=== PATIENT | male | born 1940 | race Caucasian/White ===

== ENCOUNTER 2016-08-01 14:31 | Inpatient (IN) | payer MEDICARE ==
[2016-08-01] MEDS ORDERED: FUROSEMIDE 40 MG/4 ML VIAL IV ONE (15:06)
[2016-08-01 15:08] LABS: AUTOMATED BASOPHIL 1.3 % (0-2); AUTOMATED EOSINOPHIL 0.8 % (0-5); AUTOMATED LYMPH 5.7 % (17-44); AUTOMATED MONOCYTE 7.5 % (3-10); AUTOMATED NEUTROPHIL 84.7 % (45-76); MPV 10.1 fL (7.4-10.4)
[2016-08-01 15:08] LABS: ABG Draw Site Right Radial; ABG Draw Tech SI; ALLEN'S TEST PASS; BEb 1.5 (+/- 2); TCO2 30.2 MMOL/L (23-27)
--- NOTE | 2016-08-01 15:13 | EDPRACDOC ---
- General Information Chief Complaint: Dyspnea/Resp distress Stated Complaint: INFECTION IN LEG/ DIFFICULTY BREATHING Time Seen by Provider: 08/01/16 15:03 Information Source: Patient Mode Of Arrival: Car Home Medications: Home Medications MetFORMIN (Immediate Release) [GLUCOPHAGE Immed Release] 1,000 mg PO BID Aspirin (OrangeEnteric Coated) [Ecotrin] 325 mg PO DAILY 02/16/14 Potassium Chloride 20 meq PO DAILY 02/16/14 Omeprazole [Prilosec] 20 mg PO DAILY 11/29/14 Albuterol Sulfate [Proair Hfa] 2 puff INH QID PRN 03/07/15 Atorvastatin Calcium [Lipitor] 40 mg PO HS 03/07/15 Carvedilol [Coreg] 3.125 mg PO BID 03/07/15 Furosemide [Lasix] 40 mg PO DAILY 03/07/15 Isosorbide Mononitrate [Isosorbide Mononitrate ER] 60 mg PO DAILY 03/07/15 CloNIDine (Antihypertensive) [Catapres] 0.3 mg PO BID 07/11/15 HydrALAZINE (Cardiovascular) [Apresoline] 25 mg PO TID 07/11/15 Losartan Potassium [Cozaar] 100 mg PO DAILY 07/11/15 Albuterol Sulfate [Ventolin] 3 ml NEB Q2H PRN #100 nebu 01/02/16 Cephalexin Monohydrate [Keflex] 500 mg PO Q8H #30 cap 01/02/16 Nebulizer [Erapid Nebulizer] 1 each MC QID #1 each 01/02/16 Oxycodone HCl [Roxicodone] 5 mg PO Q4-6H #30 tablet 01/02/16 Probiotic Blend [Judy Q] 1 each PO BID #30 tab 01/02/16 Allergies/Adverse Reactions: Allergies Allergy/AdvReac Type Severity Reaction Status Date / Time No Known Allergies Allergy Verified 08/01/16 14:39 - History of Present Illness Onset: Several days HPI: Leg swelling, leg sweeping, progressively worsening shortness of breath over several days nonproductive cough. Shortness of Breath: Severe Relevant History: Reports: Heart Failure (CHF) Cough: Reports: Non-productive SOB Worsens with: Reports: Exertion, Lying Flat, PND, CARNES SOB Improves with: Reports: Sitting up Associated Signs and symptoms: Denies: Nausea, Vomiting, Diarrhea ED Past Medical History - History Reviewed Yes Nurses notes reviewed and agree except as marked Information Unobtainable: Yes Unable to obtain information due to patient condition (RESPIRATORY DISTRESS PRE VENTS INFO) - Patient Medical History Neurological History: Reports: Cerebrovascular Accident. Denies: Seizures Cardiac History: Reports: Hypertension, Congestive Heart Failure, Heart Attack, Cardiac Catheterization, Hypercholesterolemia Respiratory History: Reports: COPD, Pneumonia, Emphysema GI/ History: Reports: Kidney Stones, Gastroesophageal Reflux Musculoskeletal History: Denies: Arthritis, Rheumatoid Arthritis Psychological History: Reports: Depression. Denies: Substance Use Disorder Systemic History: Reports: Diabetes (Type 2). Denies: Cancer Surgical History: Reports: Cardiac Catheterization, Hernia Surgery (1969), Tonsillectomy/Adnoidectomy - Family Medical History Reports: Hypertension, Diabetes, Cancer, Stroke (Father), Cardiac Disorders ( Father: [place] possibly in his 50's, 59yo. Mother: heart disease.) - Social Medical History Smoking Status: Never smoker Social History: Denies: Substance Use Disorder EDM Review of Systems - Review of Systems ROS Negative Except as Marked: Yes All systems reviewed and were negative except as marked ROS Unobtainable: Yes Review of systems cannot be obtained due to the patient's medical condition - Physical Exam Constitutional: Alert, Confused (SOMEWHAT), Distress, Restless Oriented to: Time, Person, Place Last recorded Vital Signs: Last Vital Signs Temp 98.3 F 08/01/16 14:40 Pulse 115 08/01/16 14:40 Resp 24 08/01/16 14:40 BP 196/120 H 08/01/16 14:40 Pulse Ox 86 L 08/01/16 14:40 Oxygen Pulse Oxygen Saturation 86 O2 Device Oxygen Flow Rate Fraction of Inspired Oxygen ( FIO2) - HEENT Head: Normal Nose: No Symptoms Reported Neck: Edema (DIFFICULT TO EXAMINE). negative: Bony Tenderness, Limited ROM, Lymphadenopathy, Meningeal Signs - Respiratory/Cardiovascular Respiratory: Accessory Muscle Use, Rales (IN ALL LUNG HYDE), Tachypnea, Other (CAN SPEAK IN BRIEF RAISES, TRIPOD, SEVERE RESPIRATORY DISTRESS) Cardiovascular: Tachycardia - GI Auscultation: Normal Palpation: Normal Tenderness: Non tender - Bladder: Normal - Musculoskeletal Back: Normal Extremities: Pedal Edema (2+ PITTING EDEMA TO THE KNEES, WEEPING, SEVERAL OPEN WOUNDS.) - Integumentary Skin: Warm, Diaphoretic - Neurologic Memory Impaired: Short-term (IMPAIRED) Motor Function: Other (GROSSLY MOVING ALL 4 EXTREMITIES) Mood Description: Anxious Thought: Coherent ED SOB MDM - Results Result Diagrams: 08/01/16 14:46 08/01/16 14:46 Results: WBC 11.2 xk/uL (3.8-10.8) H 08/01/16 14:46 RBC 3.74 xM/uL (4.70-6.10) L 08/01/16 14:46 Hgb 11.3 g/dL (14.0-18.0) L 08/01/16 14:46 Hct 35.4 % (42-52) L 08/01/16 14:46 MCV 95 fL (80-94) H 08/01/16 14:46 MCH 30.2 pg (27-32) 08/01/16 14:46 MCHC 31.9 g/dl (33-36) L 08/01/16 14:46 RDW 14.3 % (11.5-14.5) 08/01/16 14:46 Plt Count 255 xk/uL (130-400) 08/01/16 14:46 MPV 10.1 fL (7.4-10.4) 08/01/16 14:46 Neut % (Auto) 84.7 % (45-76) H 08/01/16 14:46 Lymph % (Auto) 5.7 % (17-44) L 08/01/16 14:46 [place] % (Auto) 7.5 % (3-10) 08/01/16 14:46 Eos % (Auto) 0.8 % (0-5) 08/01/16 14:46 Baso % (Auto) 1.3 % (0-2) 08/01/16 14:46 Absolute Neuts (auto) 9.41 xk/uL (1.7-8.2) H 08/01/16 14:46 Absolute Lymphs (auto) 0.56 xk/uL (0.65-4.75) L 08/01/16 14:46 Puncture Site Right radial 08/01/16 15:02 pH 7.330 pH UNITS (7.35-7.45) L 08/01/16 15:02 pCO2 54.0 mmHg (35-45) H 08/01/16 15:02 pO2 44.0 mmHg (80-100) L* 08/01/16 15:02 HCO3 28.5 MMOL/L (22-26) H 08/01/16 15:02 Total CO2 30.2 MMOL/L (23-27) H 08/01/16 15:02 Base Excess 1.5 (+/- 2) 08/01/16 15:02 FiO2 % 21% 08/01/16 15:02 Specimen Drawn By Si 08/01/16 15:02 Lab Results 08/01/16 08/01/16 15:02 14:46 WBC 11.2 H RBC 3.74 L Hgb 11.3 L Hct 35.4 L MCV 95 H MCH 30.2 MCHC 31.9 L RDW 14.3 Plt Count 255 MPV 10.1 Neut % (Auto) 84.7 H Lymph % (Auto) 5.7 L [place] % (Auto) 7.5 Eos % (Auto) 0.8 Baso % (Auto) 1.3 Absolute Neuts (auto) 9.41 H Absolute Lymphs (auto) 0.56 L Puncture Site Right radial pH 7.330 L pCO2 54.0 H pO2 44.0 L* HCO3 28.5 H Total CO2 30.2 H Base Excess 1.5 FiO2 % 21% Specimen Drawn By Si - EKG EKG #1 EKG Time: 14:46 -: Yes EKG interpreted by me Rate: bpm: 108 [place]: Normal Rhythm: ST Hypertrophy: LVH ST: Nonsp Comparison: 12/30/15 (SIMILAR) - Diagnostic Imaging Chest Image interpreted by: Radiologist Diagnostic Imaging Comments: Patient Name: KENNETH CHRISTENSEN LOC: ED : 1940 AGE: 75 Order Date:08/01/16 Date of Service:03/10 Report # [id number] Ord Physician: Del Lopez DO Exam # [id number] Emergency Physician: Bindu Melgar MD Exam(s): [id number] RAD/DG CHEST PORTABLE CLINICAL DATA: Chest pain. EXAM: PORTABLE CHEST 1 VIEW COMPARISON: Chest x-ray dated 05/04/2016. FINDINGS: Study is hypoinspiratory with crowding of the perihilar and bibasilar bronchovascular markings. There is likely some degree of additional central pulmonary vascular congestion related to mild volume overload/CHF. Mild cardiomegaly is unchanged. IMPRESSION: Central pulmonary vascular congestion, appearance accentuated by the low lung volumes, suggesting at least some degree of volume overload/CHF. Electronically Signed By: Vick May M.D. On: 08/01/2016 15:08 Electronically Signed By: Vick May MD Electronically Signed Date/Time: 511 Dictate Date/Time: 08/01/16 1506 Technologist: Cuca Blunt Transcribed By: Daniele Transcribed Date/Time: 08/01/16 1508 ED Critical Care Note - Critical Care Note Total Time (mins): 35 Comments: Due to the presence of and / or the risk of deterioration, my attendance to this patient required critical care time, including assessment/reassessment, documentation, ordering and interpreting ancillary studies, discussion with ED staff and consultants,patient and family, and excludes time spent on separately billable procedures. - Departure Disposition: Admit IP To This Hospital Condition: Unstable Final Diagnosis: Hypertensive emergency, ACUTELY DECOMPENSATED CONGESTIVE, Acute respiratory failure with hypoxia Instructions: Chronic Hypertension (ED) Education/Counseling Given To: Patient, Family Member Education/Counseling Given Regarding: Diagnosis, Treatment Referrals: Ivan Parson MD [Primary Care Provider] - As Needed Decision to Admit Time: 15:42 Decision to admit date: 08/01/16 Decision to admit: from ED - Physician Consulted Hospitalist Time Called: 15:39 Provider Called: Venkatesh Bray Time Seamer [employer] Returned Call: 15:42
[2016-08-01 15:19] LABS: BLOOD UREA NITROGEN 38 MG/DL (9-20); CALC CORRECTED 8.1 MG/DL (8.4-10.2); CALCIUM 7.6 MG/DL (8.4-10.2); CALCULATED OSMOLALITY 292 MOs/Kg (270-290); CHLORIDE 104 mEq/L (98-107); GLUCOSE 179 MG/DL (70-99); SODIUM LEVEL 145 mEq/L (137-146); TOTAL PROTEIN 6.7 G/DL (6.3-8.2)
[2016-08-01 15:25] LABS: PARTIAL THROMB. TIME 30.1 SEC (22-35); PT-INR 1.1
[2016-08-01] MEDS ORDERED: NITROGLYCERINE 0.4 MG TAB SL PRN (15:57)
[2016-08-01] MEDS ORDERED: Enoxaparin Treatment Dose per Pharmacy SQ SCH (16:00)
[2016-08-01] MEDS ORDERED: Pharmacy Order Set Alert SCH (16:00)
[2016-08-01] MEDS ORDERED: GLUCOSE (ORAL GEL) 15 GM TUBE PO PRN (16:23)
[2016-08-01] MEDS ORDERED: DEXTROSE 25 GM/50 ML PFS IV PRN (16:23)
[2016-08-01] MEDS ORDERED: GLUCAGON 1 MG VIAL SQ PRN (16:23)
--- NOTE | 2016-08-01 16:27 | HISTPHYS ---
- Chief Complaint Shortness of breath, hypertension, leg infection - History of Present Illness This is a 75-year-old male with a history of hypertension, CHF who is being admitted to the hospital with hypertensive encephalopathy, acute CHF exacerbation and concern for lower extremity cellulitis. Patient tells me that he has chronic shortness of breath, seems to be slightly confused tells me that his shortness of breath is all the time, but it seems to come and go. Says that he has had some chest tightness in the last few days, but the thing that really brought him to the hospital is severe pain in his left leg. His daughters at the bedside, with whom he has been staying for the last few days, she is able to provide some more history. She says that he is becoming progressively more short of breath over the last week or so, has been coughing but it is nonproductive. The reason she really brought to the hospital today is that he is having severe left leg pain that keeps to come in spasms. They have been trying to elevate the left lower extremity, but whenever they go to let him on his back, he started to coughing fits and has severe shortness of breath. They deny any fevers or chills, the patient says that most of his pain is in the left leg, but at times he has had some chest tightness and pain. No nausea or vomiting, no blood in the stools or any vomitus. No therapies tried prior to arrival. They are concerned about infection in the lower extremities, as he has been weeping some clear fluid, with the patient's daughter also tells me that he has been draining some thick appearing green material from his leg, the left lateral side. - Medical History Cardiac History: Reports: Hypertension, Congestive Heart Failure, Heart Attack, Cardiac Catheterization, Hypercholesterolemia Respiratory History: Reports: COPD, Pneumonia, Emphysema GI/ History: Reports: Kidney Stones, Gastroesophageal Reflux Musculoskeletal History: Denies: Arthritis, Rheumatoid Arthritis Systemic History: Reports: Diabetes (Type 2). Denies: Cancer Neurological History: Reports: Cerebrovascular Accident. Denies: Seizures Psychological History: Reports: Depression. Denies: Substance Use Disorder - Surgical History Reports: Cardiac Catheterization, Hernia Surgery (1969), Tonsillectomy/ Adnoidectomy - Medictions/Allergies Allergies No Known Allergies Allergy (Verified 08/01/16 14:39) Home Medications MetFORMIN (Immediate Release) [GLUCOPHAGE Immed Release] 1,000 mg PO BID Aspirin (OrangeEnteric Coated) [Ecotrin] 325 mg PO DAILY 02/16/14 Potassium Chloride 20 meq PO DAILY 02/16/14 Omeprazole [Prilosec] 20 mg PO DAILY 11/29/14 Albuterol Sulfate [Proair Hfa] 2 puff INH QID PRN 03/07/15 Atorvastatin Calcium [Lipitor] 40 mg PO HS 03/07/15 Carvedilol [Coreg] 3.125 mg PO BID 03/07/15 Furosemide [Lasix] 40 mg PO DAILY 03/07/15 Isosorbide Mononitrate [Isosorbide Mononitrate ER] 60 mg PO DAILY 03/07/15 CloNIDine (Antihypertensive) [Catapres] 0.3 mg PO BID 07/11/15 HydrALAZINE (Cardiovascular) [Apresoline] 25 mg PO TID 07/11/15 Losartan Potassium [Cozaar] 100 mg PO DAILY 07/11/15 Albuterol Sulfate [Ventolin] 3 ml NEB Q2H PRN #100 nebu 01/02/16 Cephalexin Monohydrate [Keflex] 500 mg PO Q8H #30 cap 01/02/16 Nebulizer [Erapid Nebulizer] 1 each MC QID #1 each 01/02/16 Oxycodone HCl [Roxicodone] 5 mg PO Q4-6H #30 tablet 01/02/16 Probiotic Blend [Judy Q] 1 each PO BID #30 tab 01/02/16 - Family History Reports: Hypertension, Diabetes, Cancer, Stroke (Father), Cardiac Disorders ( Father: [place] possibly in his 50's, 59yo. Mother: heart disease.) - Social History Smoking Status: Never smoker Social History: Denies: Substance Use Disorder - Review of Systems Constitutional: No Symptoms Reported (No fever, chills, wt loss/gain, fatigue) Eyes: No Symptoms Reported (No blurry vision, visual changes) Respiratory: No Symptoms Reported (No cough,wheezing or shortness of breath) Cardiovascular: No Symptoms Reported (No Chest pain, palpitations) Gastrointestinal: No Symptoms Reported (No abdominal pain, nausea, vomiting, diarrhea or constipation) Genitourinary: No Symptoms Reported (No dysuria) Musculoskeletal:: No Symptoms Reported (No headache, dizzness, seizures or focal weakness) Integumentary: No Symptoms Reported (No rashes or lesions) Hematologic: No Symptoms Reported (No bleeding or easy bruising) Endocrine: No Symptoms Reported (No polyuria) - Physical Exam Vital Signs: Initial Vitals Temperature 98.3 F 08/01/16 14:40 Pulse Rate 115 08/01/16 14:40 Respiratory Rate 24 08/01/16 14:40 Blood Pressure 196/120 H 08/01/16 14:40 Pulse Oxygen Saturation 86 L 08/01/16 14:40 Constitutional: Distress. negative: Cachectic, Confused Oriented to: Time, Person, Place Exam: male appearing his stated age breathing comfortably on BiPAP. Respiratory: Diminished, Rhonchi, Tachypnea, Wheezes Cardiovascular: Normal (RRR, no murmurs, rubs or gallops) - GI Palpation: Normal (soft, non distended and nontender) - Musculoskeletal Extremities: Normal (normal tone, no cyanosis or edema) Bilateral lower extremities with significant edema, he has multiple wounds that are scabbed over in different stages of healing. There is clear fluid weeping from the bilateral lower extremities, left greater than right. - Focused CV Perfusion Exam Vital Signs: Last Vital Signs Temp 98.3 F 08/01/16 14:40 Pulse 97 08/01/16 15:24 Resp 32 H 08/01/16 15:24 BP 182/93 H 08/01/16 15:24 Pulse Ox 94 08/01/16 15:24 - Lab Results Laboratory Tests 08/01/16 08/01/16 08/01/16 14:46 14:46 14:46 WBC 11.2 H Hgb 11.3 L Hct 35.4 L Plt Count 255 INR 1.1 pH pCO2 pO2 Potassium 4.6 BUN 38 H Creatinine 2.30 H AST 25 ALT 24 Troponin I 1.27 H* [id number]-Lgsybzjblch Pept 8780 H 08/01/16 15:02 WBC Hgb Hct Plt Count INR pH 7.330 L pCO2 54.0 H pO2 44.0 L* Potassium BUN Creatinine AST ALT Troponin I Rvj-F-Jdmzhtfbval Pept - Diagnostic Findings Chest x-ray: Central pulmonary vascular congestion, appearance accentuated by the low lung volumes, suggesting at least some degree of volume overload/CHF. - Assessment (1) Acute exacerbation of CHF (congestive heart failure) I50.9 - HEART FAILURE, UNSPECIFIED Acute With significant hypoxia, systolic and diastolic hypertension. Will resume the patient's usual cardiac medications , will admit to the hospital using evidence based care acute CHF order set. Diabetic and low-sodium diet when eating. Will initiate aggressive IV diuresis with Lasix every 8 hours. Will increase potassium supplementation to match. Follow electrolytes daily, follow strict ins and outs. Will place De catheter for this. (2) Hypertensive emergency I16.1 - HYPERTENSIVE EMERGENCY Acute With severe hypertension with systolic above 210, as well as intermittent confusion. Will resume the patient's home medications including clonidine, will hold losartan due to his acute kidney injury. Will also start nitrate drip. (3) Acute respiratory failure with hypoxia J96.01 - ACUTE RESPIRATORY FAILURE WITH HYPOXIA Acute Likely due to combination of fluid overload and severe hypertension. Treating as above. (4) Cellulitis L03.90 - CELLULITIS, UNSPECIFIED Acute Qualifiers: Site of cellulitis: extremity Site of cellulitis of extremity: lower extremity Laterality: right Qualified Code(s): L03.115 - Cellulitis of right lower limb Patient is a history of lower extremity ulceration with infection. Currently there is no luis carlos evidence of infection, though there is some warmth and erythema surrounding his chronic ulcerations and leg wounds. As such, will start IV linezolid, to cover for MRSA in this diabetic patient with prior history of cellulitis also has acute kidney injury currently. (5) Chronic ulcer of right calf L97.219 - NON-PRESSURE CHRONIC ULCER OF RIGHT CALF WITH UNSP SEVERITY Acute Status post surgical debridement and antibiotic therapy about 6 months ago. (6) Acute kidney injury N17.9 - ACUTE KIDNEY FAILURE, UNSPECIFIED Chronic Patient's baseline creatinine is around 1.7, today his creatinine is elevated well above 2. This is likely related to his hypertension and poor kidney perfusion due to fluid overload. Follow up closely with IV diuretic as stated above. (7) Type 2 diabetes mellitus with diabetic polyneuropathy E11.42 - TYPE 2 DIABETES MELLITUS WITH DIABETIC POLYNEUROPATHY Chronic Qualifiers: Diabetes mellitus ferry terminal agent insulin use: without senior care use Qualified Code(s): E11.42 - Type 2 diabetes mellitus with diabetic polyneuropathy Patient is on metformin at home, though blood sugars are highly elevated here. Will discontinue metformin due to his acute kidney injury, give sliding scale q.a.c. and HS insulin as needed. Also will check hemoglobin A1c and urine microalbumin. (8) Non-STEMI (non-ST elevated myocardial infarction) I21.4 - NON-ST ELEVATION (NSTEMI) MYOCARDIAL INFARCTION Acute Patient with elevated troponin, but hemodynamically stable without any chest pain. Will treat medically with aspirin, beta-melba, statin. Will also fully anticoagulated with IV Lovenox. Discussed with on-call Cardiology, who agrees with current management. Formal consult to follow in the morning. Note that he has acute kidney injury which may be exacerbating his troponin rise. - Plan In summary this patient is acutely and critically ill. The patient requires treatment of vital organ failure and measures to prevent further life- threatening deterioration of the above conditions. I personally reviewed and ordered lab testing, as well as imaging. I reviewed old medical records from previous hospitalizations as available, and spent the time mentioned below in critical care of this patient including counseling and coordination of care. Case Care Discussed with: Patient, Family, Nursing Staff Total Time: 85 Critical Care: Yes Couseling Time (>50% in counseling/coordination): Yes Code: 291
[2016-08-01] MEDS: REGULAR INSULIN 100 UNITS/ML - 3 ML VIAL SQ SCH ×2 (17:44→21:35)
[2016-08-01] MEDS: FUROSEMIDE 20 MG/2 ML VIAL IV SCH (17:46)
[2016-08-01] MEDS: ENOXAPARIN 80 MG/0.8 ML PFS SQ SCH (17:46)
[2016-08-01] MEDS: Linezolid 600 mg/300 ml Premix 600 MG/300 ML RTU IV SCH (17:52)
[2016-08-01] MEDS: MORPHINE 2 MG/ML INJECTION IV PRN (18:07)
[2016-08-01] MEDS ORDERED: LABETALOL 20 MG/4 ML SYRINGE IV ONE (18:15)
[2016-08-01] MEDS: Nitroglycerin D5W 50,000 MCG/250 ML IVBOT IV SCH (18:35)
[2016-08-01] MEDS: hydrALAZINE 25 MG TAB PO SCH (20:05)
[2016-08-01] MEDS: CARVEDILOL 3.125 MG TAB PO SCH (20:05)
[2016-08-01] MEDS: ATORVASTATIN 40 MG TAB PO SCH (20:06)
[2016-08-01] MEDS: OXYCODONE HCL 5 MG TABLET PO PRN (20:09)
[2016-08-01] MEDS: ACETAMINOPHEN 325 MG/TAB TABLET PO PRN (20:09)
[2016-08-01] MEDS: LORAZEPAM 2 MG/ML VIAL IV PRN (22:14)
[2016-08-02] MEDS: FUROSEMIDE 20 MG/2 ML VIAL IV SCH ×2 (01:03→08:47)
[2016-08-02 04:45] LABS: MPV 10.2 fL (7.4-10.4)
[2016-08-02 04:55] LABS: BLOOD UREA NITROGEN 40 MG/DL (9-20); CALCIUM 7.6 MG/DL (8.4-10.2); CALCULATED OSMOLALITY 287 MOs/Kg (270-290); CHLORIDE 100 mEq/L (98-107); GLUCOSE 90 MG/DL (70-99); SODIUM LEVEL 144 mEq/L (137-146)
[2016-08-02] MEDS: REGULAR INSULIN 100 UNITS/ML - 3 ML VIAL SQ SCH ×4 (05:42→20:29)
[2016-08-02] MEDS: hydrALAZINE 25 MG TAB PO SCH ×3 (05:55→20:28)
[2016-08-02] MEDS: PANTOPRAZOLE 40 MG TAB PO SCH (05:55)
[2016-08-02] MEDS: Linezolid 600 mg/300 ml Premix 600 MG/300 ML RTU IV SCH ×2 (05:55→17:06)
[2016-08-02] MEDS: ENOXAPARIN 80 MG/0.8 ML PFS SQ SCH (05:56)
[2016-08-02] MEDS: MORPHINE 2 MG/ML INJECTION IV PRN ×2 (06:01→11:46)
[2016-08-02] MEDS: POTASSIUM CHLORIDE 20 MEQ TAB PO SCH (08:46)
[2016-08-02] MEDS: ISOSORBIDE MONONITRATE 60 MG TAB PO SCH (08:47)
[2016-08-02] MEDS: CARVEDILOL 3.125 MG TAB PO SCH ×2 (08:47→20:29)
[2016-08-02] MEDS: Aspirin (Orange Enteric Coated) 325 mg tab PO SCH (08:47)
[2016-08-02] MEDS ORDERED: OMEPRAZOLE 20 MG PO SCH (09:00)
[2016-08-02] MEDS ORDERED: Non-Formulary Medication ITEM (Potassium Chloride [Potassium Chloride] 40 MEQ) PO SCH (09:00)
--- NOTE | 2016-08-02 09:07 | GENMEDPROG ---
Chief Complaint: Fluid overload, bilateral leg weeping Subjective Note: Doing well, feels that he is breathing much better. Was just taken off of BiPAP this morning and tolerating nasal cannula oxygen. Still having pain in his legs, primarily on the left. Notes Reviewed: Yes Events from last night noted and discussed with Clinical Staff Current Medication List: Reviewed Currently: Reports: CARNES. Denies: Cough, Wheezing DVT Prophylaxis: Yes - Physical Examination Vital Signs and I&O: Last Vital Signs Temp 98.0 F 08/02/16 06:50 Pulse 97 08/02/16 06:50 Resp 22 08/02/16 04:00 BP 153/81 08/02/16 06:50 Pulse Ox 100 08/02/16 04:00 Oxygen Pulse Oxygen Saturation 100 O2 Device BiPAP Oxygen Flow Rate 3 Fraction of Inspired Oxygen ( 40 FIO2) Intake & Output 07/31/16 08/01/16 08/02/16 08/03/16 06:59 06:59 06:59 06:59 Intake Total 240 Output Total 1700 Balance -1460 Patient's weight 89.403 kg Respiratory: Diminished (Slightly improved air movement this morning.), Rhonchi , Tachypnea, Wheezes GI: Normal bowel sounds, Soft, Non tender (non distended) Extremities/Musculoskeletal: Other (Edema is slightly improved. Still has chronic appearing wound on his bilateral lower extremities.) Lab/DI/Studies Reviewed: Laboratory Tests 08/01/16 08/01/16 08/01/16 14:46 17:40 20:15 WBC Hgb Potassium BUN Creatinine 2.30 H Troponin I 1.61 H* 1.66 H* 08/02/16 08/02/16 04:25 04:25 WBC 11.7 H Hgb 9.8 L D Potassium 4.6 BUN 40 H Creatinine 2.30 H Troponin I - Assessment (1) Acute exacerbation of CHF (congestive heart failure) Acute I50.9 - HEART FAILURE, UNSPECIFIED Comment/Plan: With significant hypoxia, systolic and diastolic hypertension. Will resume the patient's usual cardiac medications, he was admitted to the hospital using evidence based care acute CHF order set. Diabetic and low-sodium diet when eating. Patient is responding well to aggressive IV diuresis, his renal function is holding well and he has diuresed a total of about 1500 cc of fluid. Continue potassium supplementation, increase Lasix diuresis to 40 mg IV q.8 hours. Follow electrolytes daily, as well as strict I&Os. (2) Hypertensive emergency Acute I16.1 - HYPERTENSIVE EMERGENCY Comment/Plan: With severe hypertension with systolic above 210 at the time of admission, as well as intermittent confusion. His home medications has been her resumed, is also on night trait drip which will be weaned down today as able. Note that his home losartan has been held due to his acute kidney injury. (3) Acute respiratory failure with hypoxia Acute J96.01 - ACUTE RESPIRATORY FAILURE WITH HYPOXIA Comment/Plan: Likely due to combination of fluid overload and severe hypertension. Treating as above. (4) Cellulitis Acute L03.90 - CELLULITIS, UNSPECIFIED Qualifiers: Site of cellulitis: extremity Site of cellulitis of extremity: lower extremity Laterality: right Qualified Code(s): L03.115 - Cellulitis of right lower limb Comment/Plan: Patient is a history of lower extremity ulceration with infection. Currently there is no luis carlos evidence of infection, though there is some warmth and erythema surrounding his chronic ulcerations and leg wounds. As such, will start IV linezolid, to cover for MRSA in this diabetic patient with prior history of cellulitis also has acute kidney injury currently. Wound Care has been consulted. (5) Chronic ulcer of right calf Acute L97.219 - NON-PRESSURE CHRONIC ULCER OF RIGHT CALF WITH UNSP SEVERITY Comment/Plan: Status post surgical debridement and antibiotic therapy about 6 months ago. (6) Acute kidney injury Chronic N17.9 - ACUTE KIDNEY FAILURE, UNSPECIFIED Comment/Plan: Patient's baseline creatinine is around 1.7, today his creatinine is elevated well above 2. This is likely related to his hypertension and poor kidney perfusion due to fluid overload. Follow up closely with IV diuretic as stated above. (7) Type 2 diabetes mellitus with diabetic polyneuropathy Chronic E11.42 - TYPE 2 DIABETES MELLITUS WITH DIABETIC POLYNEUROPATHY Qualifiers: Diabetes mellitus retirement insulin use: without termite renewal inspector use Qualified Code(s): E11.42 - Type 2 diabetes mellitus with diabetic polyneuropathy Comment/Plan: Patient is on metformin at home, though blood sugars are highly elevated here. Will discontinue metformin due to his acute kidney injury, give sliding scale q.a.c. and HS insulin as needed. Also will check hemoglobin A1c and urine microalbumin. (8) Non-STEMI (non-ST elevated myocardial infarction) Acute I21.4 - NON-ST ELEVATION (NSTEMI) MYOCARDIAL INFARCTION Comment/Plan: Patient with elevated troponin, but hemodynamically stable without any chest pain. Will treat medically with aspirin, beta-melba, statin. Will also fully anticoagulated with IV Lovenox. Discussed with on-call Cardiology, who agrees with current management. Formal consult to follow in the morning. Note that he has acute kidney injury which may be exacerbating his troponin rise.
--- NOTE | 2016-08-02 10:48 | PCM.CARDCO ---
Consultation Date: 08/02/16 Requesting Physician: Venkatesh Bray Field Care Advocate: Amrit Dukes Consult Reason: NSTEMI - History of Present Illness Chief Complaint: Shortness of breath, hypertension, leg infection - Past Medical and Surgical History Cardiac History: Reports: Hypertension, Congestive Heart Failure, Heart Attack, Cardiac Catheterization Respiratory History: Reports: COPD, Pneumonia, Emphysema GI/ History: Reports: Kidney Stones Musculoskeletal History: Denies: Arthritis Psychological History: Reports: Depression Neurological History: Reports: Cerebrovascular Accident. Denies: Seizures Past Surgical History: Reports: Cardiac Catheterization, Hernia Surgery (1969), Tonsillectomy/Adnoidectomy Allergies No Known Allergies Allergy (Verified 08/01/16 14:39) Home Medications MetFORMIN (Immediate Release) [GLUCOPHAGE Immed Release] 1,000 mg PO BID Aspirin (OrangeEnteric Coated) [Ecotrin] 325 mg PO DAILY 02/16/14 Potassium Chloride 20 meq PO DAILY 02/16/14 Omeprazole [Prilosec] 20 mg PO DAILY 11/29/14 Albuterol Sulfate [Proair Hfa] 2 puff INH QID PRN 03/07/15 Atorvastatin Calcium [Lipitor] 40 mg PO HS 03/07/15 Carvedilol [Coreg] 3.125 mg PO BID 03/07/15 Furosemide [Lasix] 40 mg PO DAILY 03/07/15 Isosorbide Mononitrate [Isosorbide Mononitrate ER] 60 mg PO DAILY 03/07/15 CloNIDine (Antihypertensive) [Catapres] 0.3 mg PO BID 07/11/15 HydrALAZINE (Cardiovascular) [Apresoline] 25 mg PO TID 07/11/15 Losartan Potassium [Cozaar] 100 mg PO DAILY 07/11/15 Albuterol Sulfate [Ventolin] 3 ml NEB Q2H PRN #100 nebu 01/02/16 Cephalexin Monohydrate [Keflex] 500 mg PO Q8H #30 cap 01/02/16 Nebulizer [Erapid Nebulizer] 1 each MC QID #1 each 01/02/16 Oxycodone HCl [Roxicodone] 5 mg PO Q4-6H #30 tablet 01/02/16 Probiotic Blend [Judy Q] 1 each PO BID #30 tab 01/02/16 - Social History Travel Outside of [place] in the Last 3 Months?: No Smoking Status: Former smoker - Family History Reports: Hypertension, Diabetes, Cancer, Stroke (Father), Cardiac Disorders ( Father: [place] possibly in his 50's, 59yo. Mother: heart disease.) - Review of Systems Constitutional: No Symptoms Reported (No fever, chills, wt loss/gain, fatigue) - Physical Exam Constitutional: Distress. negative: Cachectic, Confused Oriented to: Time, Person, Place Exam: Last Vital Signs Temp 98.0 F 08/02/16 06:50 Pulse 106 08/02/16 09:58 Resp 22 08/02/16 04:00 BP 128/56 L 08/02/16 09:58 Pulse Ox 100 08/02/16 04:00 Intake & Output 08/01/16 08/02/16 08/02/16 23:59 07:59 15:59 Intake Total 240 480 Output Total 900 800 Balance -660 -800 480 Patient's weight 89.403 kg - HEENT Head: Normal Nose: No Symptoms Reported - Respiratory/Cardiovascular Respiratory: Diminished (Slightly improved air movement this morning.), Rhonchi , Tachypnea, Wheezes Cardiovascular: Other (S1-S2 regular 2/6 systolic murmur at the apex lungs bilateral air entry with diminished sounds) - GI Palpation: Normal (soft, non distended and nontender) - Musculoskeletal Extremities: Normal (normal tone, no cyanosis or edema) - Integumentary Skin: Warm, Diaphoretic - Neurologic Memory Impaired: Short-term (IMPAIRED) Mood Description: Anxious Thought: Coherent - Other Exam Other Exam Findings: Abdomen is nontender. Lower extremities have evidence of chronic cellulitis and significant ulceration. He does not completely evaluated because of the fact that there is alert of dressing on these wounds. - Assessment/Plan (1) Non-STEMI (non-ST elevated myocardial infarction) I21.4 - NON-ST ELEVATION (NSTEMI) MYOCARDIAL INFARCTION Acute Comment: I agree with my partner. He discussed the case at length with the hospitalist and recommended medical therapy. Patient has not taken good care of himself is noncompliant and it is general condition overall is poor. Continue medical therapy. Patient is on appropriate medications including statins. Blood pressure is stable at this time and we will monitor it closely. Further recommendations will depend on the course of the hospital stay. Echocardiogram is pending. (2) Cellulitis L03.90 - CELLULITIS, UNSPECIFIED Acute extremity lower extremity right L03.115 - Cellulitis of right lower limb Comment: Significant and is managed by hospitalist at this time. (3) Acute kidney injury N17.9 - ACUTE KIDNEY FAILURE, UNSPECIFIED Chronic Comment: Renal insufficiency is concerning in view of the patient's diabetes. This is managed by the hospitalist. (4) Type 2 diabetes mellitus with diabetic polyneuropathy E11.42 - TYPE 2 DIABETES MELLITUS WITH DIABETIC POLYNEUROPATHY Chronic without adjunct faculty for medical terminology use E11.42 - Type 2 diabetes mellitus with diabetic polyneuropathy Comment: Diet was discussed. Compliance with medical therapy was urged and the patient vocalized understanding.
--- NOTE | 2016-08-02 12:34 | CAPUECHO ---
INDICATION: HEART FAILURE HEIGHT: 147.3 cm (4 ft 10.0 in) WEIGHT: 81.7 kg (180.0 lbs) BP: 160/92 BSA: 1.729067 m MEASUREMENTS 2D RVIDd: 3.7 cm LVIDs: 4.3 cm EF(Teich): 37.71 % IVSd: 1.2 cm LVIDd: 5.3 cm LVPWd: 1.2 cm LA Diam: 4.7 cm LAESV MOD A4C: 55.8 ml LAESV MOD A2C: 82.4 ml LAESV Index (A-L): 44.27 ml/m DOPPLER MV E Moody: 0.78 m/s MV A Moody: 1.28 m/s LVOT Vmax: 1.06 m/s AV Vmax: 1.23 m/s FINDINGS ------- Procedure:2D images, m-mode, color and spectral Doppler were obtained and reviewed. ECG rhythm:Sinus rhythm. Study quality:This was a technically adequate study. This was a technically difficult study with s uboptimal views. Left Ventricle:There is mild concentric left ventricular hypertrophy. Overall left ventricular sys tolic function is low-normal with, an EF between 50 - 55 %. The diastolic filling pattern indicate s impaired relaxation. Right Ventricle:The right ventricle is normal in size and function. The RV was not well visualized . Left Atrium:The left atrium is mildly dilated. Right Atrium:The right atrium is normal in size and function. Aortic Valve:The aortic valve is trileaflet, and appears structurally normal. No aortic stenosis or regurgitation. There is mild aortic valve sclerosis. Mitral Valve:Normal appearing mitral valve. Mild mitral regurgitation is present. Tricuspid Valve:The tricuspid valve appears structurally normal. Trace tricuspid regurgitation pre sent. Pulmonic Valve:The pulmonic valve is normal. There is no pulmonic regurgitation present. Aorta:The aortic root, ascending aorta and aortic arch appear normal. IVC:Normal inferior vena cava with normal inspiratory collapse. Pericardium:There is no pericardial effusion. CONCLUSIONS 1. This was a technically difficult study with suboptimal views. 2. There is mild concentric left ventricular hypertrophy. 3. Overall left ventricular systolic function is low-normal with, an EF between 50 - 55 %. 4. The diastolic filling pattern indicates impaired relaxation. 5. Mild mitral regurgitation is present. 6. Trace tricuspid regurgitation present. Electronically Signed By: Amrit Dukes MD -- Electronically Signed On: 12:33:08
[2016-08-02] MEDS: OXYCODONE HCL 5 MG TABLET PO PRN ×2 (12:59→20:28)
[2016-08-02] MEDS ORDERED: Vaccine Screening Complete SCH (13:00)
[2016-08-02] MEDS: Nitroglycerin D5W 50,000 MCG/250 ML IVBOT IV SCH (14:19)
[2016-08-02] MEDS: ENOXAPARIN 100 MG PFS SQ SCH (17:07)
[2016-08-02] MEDS: FUROSEMIDE 40 MG/4 ML VIAL IV SCH (17:07)
[2016-08-02] MEDS: Magnesium Sulfate 2 gm/D5W 2 GM/50 ML RTU IV ONE ×2 (18:26→18:53)
[2016-08-02] MEDS: ATORVASTATIN 40 MG TAB PO SCH (20:29)
[2016-08-03] MEDS: LORAZEPAM 2 MG/ML VIAL IV PRN (00:25)
[2016-08-03] MEDS: FUROSEMIDE 40 MG/4 ML VIAL IV SCH ×4 (00:25→23:36)
[2016-08-03 05:01] LABS: MPV 10.1 fL (7.4-10.4)
[2016-08-03 05:12] LABS: BLOOD UREA NITROGEN 39 MG/DL (9-20); CALCIUM 7.9 MG/DL (8.4-10.2); CALCULATED OSMOLALITY 279 MOs/Kg (270-290); CHLORIDE 96 mEq/L (98-107); GLUCOSE 112 MG/DL (70-99); SODIUM LEVEL 140 mEq/L (137-146)
[2016-08-03] MEDS: hydrALAZINE 25 MG TAB PO SCH ×3 (05:53→22:37)
[2016-08-03] MEDS: Linezolid 600 mg/300 ml Premix 600 MG/300 ML RTU IV SCH ×2 (05:53→17:01)
[2016-08-03] MEDS: ENOXAPARIN 100 MG PFS SQ SCH ×2 (05:53→17:01)
[2016-08-03] MEDS: PANTOPRAZOLE 40 MG TAB PO SCH (05:53)
[2016-08-03] MEDS: REGULAR INSULIN 100 UNITS/ML - 3 ML VIAL SQ SCH ×4 (05:58→22:32)
--- NOTE | 2016-08-03 08:40 | GENMEDPROG ---
Chief Complaint: Acute heart failure, leg infection, non ST elevation ID Subjective Note: Resting comfortably in bed this morning. Feels like his breathing is better, this legs are less swollen as well. Notes Reviewed: Yes Events from last night noted and discussed with Clinical Staff Current Medication List: Reviewed Currently: Reports: CARNES. Denies: Cough, Wheezing DVT Prophylaxis: Yes - Physical Examination Vital Signs and I&O: Last Vital Signs Temp 98.4 F 08/03/16 07:41 Pulse 89 08/03/16 07:41 Resp 20 08/03/16 07:41 BP 131/71 08/03/16 07:41 Pulse Ox 92 08/03/16 07:41 Oxygen Pulse Oxygen Saturation 92 O2 Device Nasal Cannula Oxygen Flow Rate 3 Fraction of Inspired Oxygen ( 40 FIO2) Intake & Output 08/01/16 08/02/16 08/03/16 08/04/16 06:59 06:59 06:59 06:59 Intake Total 240 2258 Output Total 1700 3600 Balance -1460 -1342 Patient's weight 89.403 kg 89.312 kg Respiratory: Diminished (Slightly improved air movement this morning.), Rhonchi , Tachypnea, Wheezes Cardiovascular: Regular rate, No Gallops,Rubs/Murmurs GI: Normal bowel sounds, Soft, Non tender (non distended) Extremities/Musculoskeletal: Edema (3+ pitting bilateral edema which is improving.), Other (Normal Tone). negative: Cyanosis Neurological: Cranial Nerves (II-XII intact) Lab/DI/Studies Reviewed: Laboratory Tests 08/02/16 08/03/16 08/03/16 04:25 04:25 04:25 Hgb 10.0 L BUN 39 H Creatinine 2.30 H 2.20 H - Assessment (1) Acute exacerbation of CHF (congestive heart failure) Acute I50.9 - HEART FAILURE, UNSPECIFIED Comment/Plan: With significant hypoxia, systolic and diastolic hypertension. Will resume the patient's usual cardiac medications, he was admitted to the hospital using evidence based care acute CHF order set. Diabetic and low-sodium diet when eating. Patient is responding well to aggressive IV diuresis, his renal function is holding well and he has diuresed a total of about 1500 cc of fluid. Continue potassium supplementation, and increased Lasix diuresis of 40 mg IV q.8 hours. Follow electrolytes daily, as well as strict I&Os. (2) Hypertensive emergency Acute I16.1 - HYPERTENSIVE EMERGENCY Comment/Plan: With severe hypertension with systolic above 210 at the time of admission, as well as intermittent confusion. His home medications has been her resumed, is also on night trait drip which will be weaned down today as able. Note that his home losartan has been held due to his acute kidney injury. (3) Acute respiratory failure with hypoxia Acute J96.01 - ACUTE RESPIRATORY FAILURE WITH HYPOXIA Comment/Plan: Likely due to combination of fluid overload and severe hypertension. Treating as above. (4) Cellulitis Acute L03.90 - CELLULITIS, UNSPECIFIED Qualifiers: Site of cellulitis: extremity Site of cellulitis of extremity: lower extremity Laterality: right Qualified Code(s): L03.115 - Cellulitis of right lower limb Comment/Plan: Patient is a history of lower extremity ulceration with infection. Currently there is no luis carlos evidence of infection, though there is some warmth and erythema surrounding his chronic ulcerations and leg wounds. As such, will start IV linezolid, to cover for MRSA in this diabetic patient with prior history of cellulitis also has acute kidney injury currently. Wound Care has been consulted. (5) Chronic ulcer of right calf Acute L97.219 - NON-PRESSURE CHRONIC ULCER OF RIGHT CALF WITH UNSP SEVERITY Comment/Plan: Status post surgical debridement and antibiotic therapy about 6 months ago. (6) Acute kidney injury Chronic N17.9 - ACUTE KIDNEY FAILURE, UNSPECIFIED Comment/Plan: Patient's baseline creatinine is around 1.7, today his creatinine is elevated well above 2. This is likely related to his hypertension and poor kidney perfusion due to fluid overload. Follow up closely with IV diuretic as stated above. (7) Type 2 diabetes mellitus with diabetic polyneuropathy Chronic E11.42 - TYPE 2 DIABETES MELLITUS WITH DIABETIC POLYNEUROPATHY Qualifiers: Diabetes mellitus penitentiary insulin use: without long term care phlebotomist use Qualified Code(s): E11.42 - Type 2 diabetes mellitus with diabetic polyneuropathy Comment/Plan: Patient is on metformin at home, though blood sugars are highly elevated here. Will discontinue metformin due to his acute kidney injury, give sliding scale q.a.c. and HS insulin as needed. Also will check hemoglobin A1c and urine microalbumin. (8) Non-STEMI (non-ST elevated myocardial infarction) Acute I21.4 - NON-ST ELEVATION (NSTEMI) MYOCARDIAL INFARCTION Comment/Plan: Patient with elevated troponin, but hemodynamically stable without any chest pain. Will treat medically with aspirin, beta-melba, statin. Will also fully anticoagulated with IV Lovenox. Cardiology has seen, and agrees with current management. Will recheck a troponin, and likely discontinue Lovenox anticoagulation when troponin
[2016-08-03] MEDS: POTASSIUM CHLORIDE 20 MEQ TAB PO SCH (08:50)
[2016-08-03] MEDS: Aspirin (Orange Enteric Coated) 325 mg tab PO SCH (08:51)
[2016-08-03] MEDS: ISOSORBIDE MONONITRATE 60 MG TAB PO SCH (08:51)
[2016-08-03] MEDS: CARVEDILOL 3.125 MG TAB PO SCH ×2 (08:52→22:38)
[2016-08-03] MEDS: OXYCODONE HCL 5 MG TABLET PO PRN ×2 (09:08→22:33)
[2016-08-03] MEDS: MORPHINE 2 MG/ML INJECTION IV PRN ×2 (11:22→19:40)
--- NOTE | 2016-08-03 12:24 | PCM.CARD ---
- Subjective Current Assessment: No New Symptoms (Patient denies any symptoms from a cardiac standpoint. No chest pain.) Vital Signs: Last Vital Signs Temp 98.4 F 08/03/16 11:35 Pulse 89 08/03/16 11:35 Resp 20 08/03/16 11:35 BP 122/63 08/03/16 11:35 Pulse Ox 94 08/03/16 11:35 Heart Sounds: S1 & S2 (Cardiac auscultation unchanged lungs bilateral air entry. Condition of the lower extremities has not largely changed.) - Assessment/Plan (1) Non-STEMI (non-ST elevated myocardial infarction) Acute I21.4 - NON-ST ELEVATION (NSTEMI) MYOCARDIAL INFARCTION Comment/Plan: Medical management as discussed earlier. Continue medications at this time. Patient is on appropriate medications. (2) Cellulitis Acute L03.90 - CELLULITIS, UNSPECIFIED extremity lower extremity right L03.115 - Cellulitis of right lower limb Comment/Plan: Patient is being treated aggressively for cellulitis. This is a very concerning problem in view of significant cellulitis, ulceration and the fact that he has diabetes and has not taken care of himself. (3) Acute kidney injury Chronic N17.9 - ACUTE KIDNEY FAILURE, UNSPECIFIED Comment/Plan: Stable monitored by hospitalist service. (4) Type 2 diabetes mellitus with diabetic polyneuropathy Chronic E11.42 - TYPE 2 DIABETES MELLITUS WITH DIABETIC POLYNEUROPATHY without intermodal customer service use E11.42 - Type 2 diabetes mellitus with diabetic polyneuropathy Comment/Plan: Diet was discussed for diabetes mellitus and I urged him to take better care of himself. He vocalized understanding.
[2016-08-03] MEDS: ONDANSETRON HCL 4 MG/2 ML VIAL IV PRN ×2 (13:17→19:41)
[2016-08-03] MEDS ORDERED: Medication Special Instructions SCH (16:00)
[2016-08-03] MEDS: ATORVASTATIN 40 MG TAB PO SCH (22:33)
[2016-08-04] MEDS: OXYCODONE HCL 5 MG TABLET PO PRN ×2 (03:59→09:43)
[2016-08-04 05:21] LABS: MPV 9.8 fL (7.4-10.4)
[2016-08-04 05:32] LABS: BLOOD UREA NITROGEN 42 MG/DL (9-20); CALCIUM 8.1 MG/DL (8.4-10.2); CALCULATED OSMOLALITY 273 MOs/Kg (270-290); CHLORIDE 95 mEq/L (98-107); GLUCOSE 94 MG/DL (70-99); SODIUM LEVEL 136 mEq/L (137-146)
[2016-08-04] MEDS: hydrALAZINE 25 MG TAB PO SCH ×3 (06:18→20:00)
[2016-08-04] MEDS: Linezolid 600 mg/300 ml Premix 600 MG/300 ML RTU IV SCH (06:18)
[2016-08-04] MEDS: ENOXAPARIN 100 MG PFS SQ SCH ×2 (06:19→18:23)
[2016-08-04] MEDS: PANTOPRAZOLE 40 MG TAB PO SCH (06:20)
[2016-08-04] MEDS: REGULAR INSULIN 100 UNITS/ML - 3 ML VIAL SQ SCH ×4 (06:45→21:27)
--- NOTE | 2016-08-04 08:38 | GENMEDPROG ---
Chief Complaint: Anasarca, leg infection, nonST elevation [place] Subjective Note: He is doing well, has no acute complaints. Feels that his legs are getting better. Notes Reviewed: Yes Events from last night noted and discussed with Clinical Staff Current Medication List: Reviewed Currently: Reports: CARNES. Denies: Cough, Wheezing DVT Prophylaxis: Yes - Physical Examination Vital Signs and I&O: Last Vital Signs Temp 96.7 F L 08/04/16 04:00 Pulse 75 08/04/16 06:28 Resp 18 08/04/16 04:00 BP 113/56 L 08/04/16 04:00 Pulse Ox 94 08/04/16 04:00 Oxygen Pulse Oxygen Saturation 94 O2 Device Nasal Cannula Oxygen Flow Rate 3 Fraction of Inspired Oxygen ( 40 FIO2) Intake & Output 08/02/16 08/03/16 08/04/16 08/05/16 06:59 06:59 06:59 06:59 Intake Total 240 2258 1220 Output Total 1700 3600 1500 Balance -1460 -1342 -280 Patient's weight 89.403 kg 89.312 kg 89.386 kg General: Alert, Oriented x3, No acute distress, Well appearing, Well nourished, Other (Normal and appropriate affect) Neck: Normal Trachea alignment, Normal inspection Respiratory: Diminished (Slightly improved air movement this morning.), Rhonchi , Tachypnea, Wheezes Cardiovascular: Regular rate, No Gallops,Rubs/Murmurs GI: Normal bowel sounds, Soft, Non tender (non distended) Extremities/Musculoskeletal: Edema (2+ pitting bilateral edema which is improving, visible above and below legs that have been wrapped by wound care), Other (Normal Tone). negative: Cyanosis Neurological: Cranial Nerves (II-XII intact) Lab/DI/Studies Reviewed: Laboratory Tests 08/03/16 08/03/16 08/04/16 04:25 04:25 04:45 Hgb 10.0 L BUN 42 H Creatinine 2.20 H 2.30 H 08/04/16 04:45 Hgb 9.3 L BUN Creatinine - Assessment (1) Acute exacerbation of CHF (congestive heart failure) Acute I50.9 - HEART FAILURE, UNSPECIFIED Comment/Plan: With significant hypoxia, systolic and diastolic hypertension. Will resume the patient's usual cardiac medications, he was admitted to the hospital using evidence based care acute CHF order set. Diabetic and low-sodium diet when eating. Patient is responding well to aggressive IV diuresis, his renal function is holding well and he has diuresed another 1.3 L in the last 24 hours. Continue potassium supplementation, and increased Lasix diuresis of 40 mg IV q.8 hours. Follow electrolytes daily, as well as strict I&Os. His BUN is only study, and his creatinine is slowly starting to rise, so we may need to discontinue aggressive IV diuresis after today. (2) Hypertensive emergency Acute I16.1 - HYPERTENSIVE EMERGENCY Comment/Plan: With severe hypertension with systolic above 210 at the time of admission, as well as intermittent confusion. His home medications has been her resumed, is also on night trait drip which will be weaned down today as able. Note that his home losartan has been held due to his acute kidney injury. (3) Acute respiratory failure with hypoxia Acute J96.01 - ACUTE RESPIRATORY FAILURE WITH HYPOXIA Comment/Plan: Likely due to combination of fluid overload and severe hypertension. Treating as above. (4) Cellulitis Acute L03.90 - CELLULITIS, UNSPECIFIED Qualifiers: Site of cellulitis: extremity Site of cellulitis of extremity: lower extremity Laterality: right Qualified Code(s): L03.115 - Cellulitis of right lower limb Comment/Plan: Patient is a history of lower extremity ulceration with infection. Currently there is no luis carlos evidence of infection, though there is some warmth and erythema surrounding his chronic ulcerations and leg wounds. As such, will start IV linezolid, to cover for MRSA in this diabetic patient with prior history of cellulitis also has acute kidney injury currently. Wound Care has been consulted. (5) Chronic ulcer of right calf Acute L97.219 - NON-PRESSURE CHRONIC ULCER OF RIGHT CALF WITH UNSP SEVERITY Comment/Plan: Status post surgical debridement and antibiotic therapy about 6 months ago. (6) Acute kidney injury Chronic N17.9 - ACUTE KIDNEY FAILURE, UNSPECIFIED Comment/Plan: Patient's baseline creatinine is around 1.7, today his creatinine is elevated well above 2. Kirby to be most likely related to hypertension and poor kidney effusion due to fluid overload. Renal function was slowly improving, but is now starting to rise again, so may need to discontinue Lasix if this continues to happen. (7) Type 2 diabetes mellitus with diabetic polyneuropathy Chronic E11.42 - TYPE 2 DIABETES MELLITUS WITH DIABETIC POLYNEUROPATHY Qualifiers: Diabetes mellitus moth exterminator insulin use: without moth exterminator use Qualified Code(s): E11.42 - Type 2 diabetes mellitus with diabetic polyneuropathy Comment/Plan: Patient is on metformin at home, though blood sugars are highly elevated here. Will discontinue metformin due to his acute kidney injury, give sliding scale q.a.c. and HS insulin as needed. Also will check hemoglobin A1c and urine microalbumin. (8) Non-STEMI (non-ST elevated myocardial infarction) Acute I21.4 - NON-ST ELEVATION (NSTEMI) MYOCARDIAL INFARCTION Comment/Plan: Patient with elevated troponin, but hemodynamically stable without any chest pain. Will treat medically with aspirin, beta-melba, statin. Will also fully anticoagulated with IV Lovenox. Cardiology has seen, and agrees with current management. Will recheck a troponin, and likely discontinue Lovenox anticoagulation when troponin Total Time: 45
[2016-08-04] MEDS: CARVEDILOL 3.125 MG TAB PO SCH ×2 (09:43→20:02)
[2016-08-04] MEDS: ISOSORBIDE MONONITRATE 60 MG TAB PO SCH (09:43)
[2016-08-04] MEDS: FUROSEMIDE 40 MG/4 ML VIAL IV SCH ×2 (09:43→15:22)
[2016-08-04] MEDS: Aspirin (Orange Enteric Coated) 325 mg tab PO SCH (09:43)
[2016-08-04] MEDS: POTASSIUM CHLORIDE 20 MEQ TAB PO SCH (09:43)
--- NOTE | 2016-08-04 10:43 | PCM.CARD ---
- Subjective Current Assessment: No New Symptoms (Patient denies any problems from a cardiac standpoint.) Vital Signs: Last Vital Signs Temp 97.8 F 08/04/16 08:50 Pulse 86 08/04/16 08:50 Resp 20 08/04/16 08:50 BP 113/59 L 08/04/16 08:50 Pulse Ox 95 08/04/16 08:50 Heart Sounds: S1 & S2 (Heart sounds irregular lungs bilateral air entry and no pedal edema.) - Assessment/Plan (1) Non-STEMI (non-ST elevated myocardial infarction) Acute I21.4 - NON-ST ELEVATION (NSTEMI) MYOCARDIAL INFARCTION Comment/Plan: For reasons mentioned above continue medical therapy. At this time asymptomatic. Patient is receiving appropriate medications. We will DC from inpatient followup. Please do not hesitate to call us if there are any questions in his cardiovascular management. (2) Cellulitis Acute L03.90 - CELLULITIS, UNSPECIFIED extremity lower extremity right L03.115 - Cellulitis of right lower limb Comment/Plan: Shows some improvement. Managed by hospitalist. I think this will take several weeks for him to recover from his chronic cellulitis in view of the fact that has been longstanding and also the fact that is a diabetic. (3) Acute kidney injury Chronic N17.9 - ACUTE KIDNEY FAILURE, UNSPECIFIED Comment/Plan: Stable and being monitored by the hospitalist. (4) Type 2 diabetes mellitus with diabetic polyneuropathy Chronic E11.42 - TYPE 2 DIABETES MELLITUS WITH DIABETIC POLYNEUROPATHY without gifted teacher use E11.42 - Type 2 diabetes mellitus with diabetic polyneuropathy Comment/Plan: I discussed diet and compliance with the patient at length.
[2016-08-04] MEDS: ONDANSETRON HCL 4 MG/2 ML VIAL IV PRN (11:10)
[2016-08-04] MEDS: ACETAMINOPHEN 325 MG/TAB TABLET PO PRN ×2 (13:43→20:07)
[2016-08-04] MEDS ORDERED: NS 250 ML IV ONE (14:00)
[2016-08-04] MEDS: ATORVASTATIN 40 MG TAB PO SCH (20:02)
[2016-08-04] MEDS: LINEZOLID 600 MG TAB PO SCH (20:02)
[2016-08-05] MEDS: FUROSEMIDE 40 MG/4 ML VIAL IV SCH ×5 (00:25→20:31)
[2016-08-05] MEDS: LORAZEPAM 2 MG/ML VIAL IV PRN ×2 (00:49→20:21)
[2016-08-05 05:28] LABS: MPV 9.6 fL (7.4-10.4)
[2016-08-05 05:32] LABS: BLOOD UREA NITROGEN 47 MG/DL (9-20); CALCIUM 8.2 MG/DL (8.4-10.2); CALCULATED OSMOLALITY 272 MOs/Kg (270-290); CHLORIDE 95 mEq/L (98-107); GLUCOSE 92 MG/DL (70-99); SODIUM LEVEL 135 mEq/L (137-146)
[2016-08-05] MEDS: REGULAR INSULIN 100 UNITS/ML - 3 ML VIAL SQ SCH ×4 (06:06→20:26)
[2016-08-05] MEDS: hydrALAZINE 25 MG TAB PO SCH ×3 (06:07→20:14)
[2016-08-05] MEDS: PANTOPRAZOLE 40 MG TAB PO SCH (06:07)
[2016-08-05] MEDS: ENOXAPARIN 100 MG PFS SQ SCH (06:07)
[2016-08-05] MEDS: OXYCODONE HCL 5 MG TABLET PO PRN (06:13)
[2016-08-05] MEDS: POTASSIUM CHLORIDE 20 MEQ TAB PO SCH (08:41)
[2016-08-05] MEDS: Aspirin (Orange Enteric Coated) 325 mg tab PO SCH (08:43)
[2016-08-05] MEDS: ISOSORBIDE MONONITRATE 60 MG TAB PO SCH (08:43)
[2016-08-05] MEDS: CARVEDILOL 3.125 MG TAB PO SCH ×2 (08:43→20:14)
[2016-08-05] MEDS: LINEZOLID 600 MG TAB PO SCH ×2 (08:44→20:26)
--- NOTE | 2016-08-05 09:10 | GENMEDPROG ---
Chief Complaint: acute sys & dis CHF, HTN, NSTEMI, anemia, GOKUL, venous stasis ulcer R leg, Currently: Reports: CARNES. Denies: Cough, Wheezing DVT Prophylaxis: Yes - Physical Examination Vital Signs and I&O: Last Vital Signs Temp 98.8 F 08/05/16 08:12 Pulse 86 08/05/16 08:12 Resp 20 08/05/16 08:12 BP 137/67 08/05/16 08:12 Pulse Ox 95 08/05/16 08:12 Oxygen Pulse Oxygen Saturation 95 O2 Device Nasal Cannula Oxygen Flow Rate 3 Fraction of Inspired Oxygen ( 40 FIO2) Intake & Output 08/02/16 08/03/16 08/04/16 08/05/16 23:59 23:59 23:59 23:59 Intake Total 1866 1613 920 Output Total 3906 3968 754 933 Balance -2035 -387 -60 -850 Patient's weight 89.403 kg 89.312 kg 89.386 kg 88.995 kg General: Alert, Oriented x3, No acute distress, Well appearing, Well nourished, Other (Normal and appropriate affect) HEENT: Normal, PERRLA, EOMI, Anicteric Sclera, Mucous membr. moist/pink Neck: Normal Trachea alignment, Normal inspection Respiratory: Diminished (Slightly improved air movement this morning.), Rhonchi , Tachypnea, Wheezes Cardiovascular: Regular rate, No Gallops,Rubs/Murmurs GI: Normal bowel sounds, Soft, Non tender (non distended) Extremities/Musculoskeletal: Edema (2+ pitting bilateral edema which is improving, visible above and below legs that have been wrapped by wound care), Other (Normal Tone). negative: Cyanosis Skin: Rash (multiple superficial areas of ulcers and excoriations on legs, most are scabbed over and healing, edema of distal extremities with some inflammation still present), Ulceration, Excoriation (multiple superficial areas of ulcers and excoriations on legs, most are scabbed over and healing, edema of distal extremities with some inflammation still present) Neurological: Normal speech, Cranial Nerves (II-XII intact) Psych/Mental Status: Normal Affect, Cooperative, Confused, Disoriented Lab/DI/Studies Reviewed: Echo: CONCLUSIONS 1. This was a technically difficult study with suboptimal views. 2. There is mild concentric left ventricular hypertrophy. 3. Overall left ventricular systolic function is low-normal with, an EF between 50 - 55 %. 4. The diastolic filling pattern indicates impaired relaxation. 5. Mild mitral regurgitation is present. 6. Trace tricuspid regurgitation present. Electronically Signed By: Amrit Dukes MD -- Electronically Signed On: 12:33:08 Copy to: Ivan Parson MD~ 08/02/16 1234 - Assessment (1) Venous stasis ulcers of both lower extremities Acute I83.019 - VARICOSE VEINS OF RIGHT LOWER EXTREMITY W ULCER OF UNSP SITE; I83.029 - VARICOSE VEINS OF LEFT LOWER EXTREMITY W ULCER OF UNSP SITE Comment/ Plan: Patient forgets to elevate his legs, has persistent swelling in both legs and numerous partially healed ulcers of both legs. Dementia is contributing to his illness. He seems to know what he is saying, but actually does not reconize people or surroundings. (2) Acute exacerbation of CHF (congestive heart failure) Chronic I50.9 - HEART FAILURE, UNSPECIFIED Qualifiers: Congestive heart failure type: diastolic Qualified Code(s): I50.33 - Acute on chronic diastolic (congestive) heart failure Comment/Plan: With significant hypoxia, systolic and diastolic hypertension. Will resume the patient's usual cardiac medications, he was admitted to the hospital using evidence based care acute CHF order set. Diabetic and low- sodium diet when eating. Patient is responding well to aggressive IV diuresis, his renal function is holding well and he has diuresed another 1.3 L in the last 24 hours. Continue potassium supplementation, and increased Lasix diuresis of 40 mg IV q.8 hours. Follow electrolytes daily, as well as strict I&Os. His BUN is only study, and his creatinine is slowly starting to rise, so we may need to discontinue aggressive IV diuresis after today. (3) Acute respiratory failure with hypoxia Acute J96.01 - ACUTE RESPIRATORY FAILURE WITH HYPOXIA Comment/Plan: Likely due to combination of fluid overload and severe hypertension. Treating as above. (4) Hypertensive emergency Acute I16.1 - HYPERTENSIVE EMERGENCY Comment/Plan: With severe hypertension with systolic above 210 at the time of admission, as well as intermittent confusion. His home medications has been resumed, was also on nitro drip which has been weaned off. Note that his home losartan has been held due to his acute kidney injury. (5) Cellulitis Acute L03.90 - CELLULITIS, UNSPECIFIED Qualifiers: Site of cellulitis: extremity Site of cellulitis of extremity: lower extremity Laterality: unspecified laterality Qualified Code(s): L03.119 - Cellulitis of unspecified part of limb Comment/Plan: Patient is a history of lower extremity ulceration with infection. Currently there is no luis carlos evidence of infection, though there is some warmth and erythema surrounding his chronic ulcerations and leg wounds. As such, has been on 6 days of IV linezolid, to cover for MRSA in this diabetic patient with prior history of cellulitis also has acute kidney injury currently. Will discontinue tomorrow. 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 Will discontinue metformin due to his acute kidney injury; use sliding scale q.a.c. and HS insulin as needed. Also checked hemoglobin A1c=6.4 and urine [id number]=132.2.
[2016-08-05] MEDS: ENOXAPARIN 30 MG/0.3 ML PFS SQ SCH (17:14)
[2016-08-05] MEDS: ATORVASTATIN 40 MG TAB PO SCH (20:14)
[2016-08-06] MEDS: PANTOPRAZOLE 40 MG TAB PO SCH (04:28)
[2016-08-06] MEDS: hydrALAZINE 25 MG TAB PO SCH ×3 (04:28→21:11)
[2016-08-06 05:03] LABS: MPV 9.4 fL (7.4-10.4)
[2016-08-06 05:15] LABS: BLOOD UREA NITROGEN 47 MG/DL (9-20); CALCIUM 8.3 MG/DL (8.4-10.2); CALCULATED OSMOLALITY 280 MOs/Kg (270-290); CHLORIDE 94 mEq/L (98-107); GLUCOSE 95 MG/DL (70-99); SODIUM LEVEL 139 mEq/L (137-146)
[2016-08-06] MEDS ORDERED: ENOXAPARIN 100 MG PFS SQ SCH (06:00)
[2016-08-06] MEDS: REGULAR INSULIN 100 UNITS/ML - 3 ML VIAL SQ SCH ×4 (06:34→21:11)
[2016-08-06] MEDS: Aspirin (Orange Enteric Coated) 325 mg tab PO SCH (10:46)
[2016-08-06] MEDS: POTASSIUM CHLORIDE 20 MEQ TAB PO SCH (10:46)
[2016-08-06] MEDS: CARVEDILOL 3.125 MG TAB PO SCH ×2 (10:46→21:11)
[2016-08-06] MEDS: FUROSEMIDE 40 MG/4 ML VIAL IV SCH ×2 (10:47→15:28)
[2016-08-06] MEDS: MORPHINE 2 MG/ML INJECTION IV PRN (11:23)
[2016-08-06] MEDS: ONDANSETRON HCL 4 MG/2 ML VIAL IV PRN (11:23)
[2016-08-06] MEDS: LINEZOLID 600 MG TAB PO SCH ×2 (11:28→21:11)
[2016-08-06] MEDS: ISOSORBIDE MONONITRATE 60 MG TAB PO SCH (11:29)
--- NOTE | 2016-08-06 16:29 | GENMEDPROG ---
Chief Complaint: venous stasis ulcers, simon CHF, dementia, HTN, DM-2 CAD Notes Reviewed: Yes Events from last night noted and discussed with Clinical Staff Current Medication List: Reviewed Currently: Reports: CARNES. Denies: Cough, Wheezing DVT Prophylaxis: Yes - Physical Examination Vital Signs and I&O: Last Vital Signs Temp 98.4 F 08/06/16 11:13 Pulse 70 08/06/16 12:00 Resp 18 08/06/16 11:13 BP 188/90 H 08/06/16 11:13 Pulse Ox 93 08/06/16 11:13 Oxygen Pulse Oxygen Saturation 93 O2 Device Nasal Cannula Oxygen Flow Rate 3 Fraction of Inspired Oxygen ( 40 FIO2) Intake & Output 08/03/16 08/04/16 08/05/16 08/06/16 23:59 23:59 23:59 23:59 Intake Total 1613 085 260 6960 Output Total 1999 980 1300 300 Balance -387 -60 -479 1239 Patient's weight 89.312 kg 89.386 kg 88.995 kg 86.183 kg General: Alert, Oriented x3, No acute distress, Well appearing, Well nourished, Other (Normal and appropriate affect) HEENT: Normal, PERRLA, EOMI, Mucous membr. moist/pink Neck: Normal Trachea alignment, Normal inspection Lymphatics: Normal Respiratory: Normal - CTA, Diminished (Slightly improved air movement this morning.), Wheezes Cardiovascular: Regular rate, Normal S1, No Gallops,Rubs/Murmurs, Normal S2, LE Edema, PMI Not Lateralized, Chest Non Tender GI: Normal bowel sounds, Soft, Non tender (non distended) Extremities/Musculoskeletal: Edema (2+ pitting bilateral edema which is improving, visible above and below legs that have been wrapped by wound care), Other (Normal Tone). negative: Cyanosis Skin: Rash, Ulceration, Excoriation Neurological: Normal speech, Normal tone, Cranial Nerves (II-XII intact) Psych/Mental Status: Normal Affect, Cooperative, Confabulating, Confused, Disoriented Lab/DI/Studies Reviewed: Laboratory Tests 08/06/16 08/06/16 08/06/16 04:30 04:30 04:48 WBC 5.6 Hgb 9.5 L Hct 28.1 L Plt Count 178 Sodium 139 Potassium 4.0 Chloride 94 L Carbon Dioxide 36 H Anion Gap 13 BUN 47 H Creatinine 2.40 H Estimated GFR (MDRD) 27 L Glucose 95 POC Capillary Glucose 102 H Calculated Osmolality 280 Calcium 8.3 L - Assessment (1) Acute exacerbation of CHF (congestive heart failure) Chronic I50.9 - HEART FAILURE, UNSPECIFIED Qualifiers: Congestive heart failure type: diastolic Qualified Code(s): I50.33 - Acute on chronic diastolic (congestive) heart failure Comment/Plan: With significant hypoxia, systolic and diastolic hypertension. Will resume the patient's usual cardiac medications, he was admitted to the hospital using evidence based care acute CHF order set. Diabetic and low- sodium diet when eating. Patient is responding well to aggressive IV diuresis, his renal function is holding well and he has diuresed another 1.3 L in the last 24 hours. Continue potassium supplementation, and increased Lasix diuresis of 40 mg IV q.8 hours. Follow electrolytes daily, as well as strict I&Os. (2) Venous stasis ulcers of both lower extremities Acute I83.019 - VARICOSE VEINS OF RIGHT LOWER EXTREMITY W ULCER OF UNSP SITE; I83.029 - VARICOSE VEINS OF LEFT LOWER EXTREMITY W ULCER OF UNSP SITE Comment/ Plan: Patient forgets to elevate his legs, has persistent swelling in both legs and numerous partially healed ulcers of both legs. Dementia is contributing to his illness. He seems to know what he is saying, but actually does not reconize people or surroundings. (3) Non-STEMI (non-ST elevated myocardial infarction) Acute I21.4 - NON-ST ELEVATION (NSTEMI) MYOCARDIAL INFARCTION Comment/Plan: Patient with elevated troponin, but hemodynamically stable without any chest pain. Will treat medically with aspirin, beta-melba, statin. Will also fully anticoagulated with IV Lovenox. Cardiology has seen, and agrees with current management. Decrease Lovenox to prophylactic dose now. (4) Hypertensive emergency Acute I16.1 - HYPERTENSIVE EMERGENCY Comment/Plan: With severe hypertension with systolic above 210 at the time of admission, as well as intermittent confusion. His home medications has been resumed, was also on nitro drip which has been weaned off. Note that his home losartan has been held due to his acute kidney injury. (5) Acute respiratory failure with hypoxia Acute J96.01 - ACUTE RESPIRATORY FAILURE WITH HYPOXIA Comment/Plan: Likely due to combination of fluid overload and severe hypertension. Treating as above. 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 Will discontinue metformin due to his acute kidney injury; use sliding scale q.a.c. and HS insulin as needed. Also checked hemoglobin A1c=6.4 and urine [id number]=210.2. (7) Acute kidney injury Chronic N17.9 - ACUTE KIDNEY FAILURE, UNSPECIFIED Comment/Plan: Patient's baseline creatinine is around 1.7, today his creatinine is elevated well above 2. [place] to be most likely related to hypertension and poor kidney perfusion due to fluid overload. Renal function was slowly improving, but is now starting to rise again, so may need to discontinue/decrease Lasix if this continues to happen.
[2016-08-06] MEDS: ENOXAPARIN 30 MG/0.3 ML PFS SQ SCH (17:24)
[2016-08-06] MEDS: ATORVASTATIN 40 MG TAB PO SCH (21:10)
[2016-08-07] MEDS: FUROSEMIDE 40 MG/4 ML VIAL IV SCH ×2 (00:13→08:15)
[2016-08-07 04:37] VITALS: BMI 28.8
[2016-08-07 05:37] LABS: MPV 9.1 fL (7.4-10.4)
[2016-08-07] MEDS: PANTOPRAZOLE 40 MG TAB PO SCH (05:43)
[2016-08-07] MEDS: hydrALAZINE 25 MG TAB PO SCH ×3 (05:43→19:57)
[2016-08-07] MEDS: REGULAR INSULIN 100 UNITS/ML - 3 ML VIAL SQ SCH ×4 (05:44→20:25)
[2016-08-07 05:49] LABS: BLOOD UREA NITROGEN 47 MG/DL (9-20); CALCIUM 8.5 MG/DL (8.4-10.2); CALCULATED OSMOLALITY 277 MOs/Kg (270-290); CHLORIDE 92 mEq/L (98-107); GLUCOSE 110 MG/DL (70-99); SODIUM LEVEL 137 mEq/L (137-146)
[2016-08-07] MEDS: POTASSIUM CHLORIDE 20 MEQ TAB PO SCH (08:14)
[2016-08-07] MEDS: LINEZOLID 600 MG TAB PO SCH (08:15)
[2016-08-07] MEDS: CARVEDILOL 3.125 MG TAB PO SCH ×2 (08:15→19:57)
[2016-08-07] MEDS: ISOSORBIDE MONONITRATE 60 MG TAB PO SCH (08:15)
[2016-08-07] MEDS: Aspirin (Orange Enteric Coated) 325 mg tab PO SCH (08:15)
--- NOTE | 2016-08-07 10:42 | GENMEDPROG ---
Chief Complaint: simon CHF, venous stasis ulcers on legs, DM-2, M HTN, Subjective Note: Patient states he is feeling better. Notes Reviewed: Yes Events from last night noted and discussed with Clinical Staff Current Medication List: Reviewed Currently: Reports: CARNES. Denies: Cough, Wheezing DVT Prophylaxis: Yes - Physical Examination Vital Signs and I&O: Last Vital Signs Temp 98.6 F 08/07/16 08:00 Pulse 73 08/07/16 10:01 Resp 18 08/07/16 08:00 BP 122/70 08/07/16 08:00 Pulse Ox 94 08/07/16 08:00 Oxygen Pulse Oxygen Saturation 94 O2 Device Nasal Cannula Oxygen Flow Rate 3 Fraction of Inspired Oxygen ( 40 FIO2) Intake & Output 08/04/16 08/05/16 08/06/16 08/07/16 23:59 23:59 23:59 23:59 Intake Total 679 328 9812 240 Output Total 980 6990 843 2099 Balance -60 -479 1159 -860 Patient's weight 89.386 kg 88.995 kg 86.183 kg 85.927 kg General: Alert, Oriented x3, No acute distress, Well appearing, Well nourished, Other (Normal and appropriate affect) HEENT: Normal, PERRLA, EOMI, Mucous membr. moist/pink Neck: Normal Trachea alignment, Normal inspection Lymphatics: Normal Respiratory: Normal - CTA, Diminished (Slightly improved air movement this morning.), Wheezes Cardiovascular: Regular rate, Normal S1, No Gallops,Rubs/Murmurs, Normal S2, LE Edema, PMI Not Lateralized, Chest Non Tender GI: Normal bowel sounds, Soft, Non tender (non distended) Extremities/Musculoskeletal: Edema (2+ pitting bilateral edema which is improving, visible above and below legs that have been wrapped by wound care), Other (Normal Tone). negative: Cyanosis Skin: Rash, Ulceration, Excoriation Neurological: Normal speech, Normal tone, Cranial Nerves (II-XII intact) Psych/Mental Status: Normal Affect, Cooperative, Confabulating, Confused, Disoriented - Assessment (1) Acute exacerbation of CHF (congestive heart failure) Chronic I50.9 - HEART FAILURE, UNSPECIFIED Qualifiers: Congestive heart failure type: diastolic Qualified Code(s): I50.33 - Acute on chronic diastolic (congestive) heart failure Comment/Plan: With significant hypoxia, systolic and diastolic hypertension. Will resume the patient's usual cardiac medications; he was admitted to the hospital using evidence based care acute CHF order set. Diabetic and low- sodium diet when eating. Patient is responding well to aggressive IV diuresis, his renal function is holding well and he has diuresed another 1.1 L in the last 24 hours. Continue potassium supplementation, and change Lasix to 40 mg PO q.12 hours. Patient weighed 89 Kg on admission, has dropped down to 85 kg now. Was 84.5 kg at last discharge. (close to dry weight.) (2) Venous stasis ulcers of both lower extremities Acute I83.019 - VARICOSE VEINS OF RIGHT LOWER EXTREMITY W ULCER OF UNSP SITE; I83.029 - VARICOSE VEINS OF LEFT LOWER EXTREMITY W ULCER OF UNSP SITE Comment/ Plan: Patient forgets to elevate his legs, has persistent swelling in both legs and numerous partially healed ulcers of both legs. Dementia is contributing to his illness. He seems to know what he is saying, but actually does not reconize people or surroundings. Lives with daughter, gets home health nursing services. Noncompliance is large part of return visits due to forgetfulness and family relying on patient to remember to do things. (3) Non-STEMI (non-ST elevated myocardial infarction) Acute I21.4 - NON-ST ELEVATION (NSTEMI) MYOCARDIAL INFARCTION Comment/Plan: Patient with elevated troponin, but hemodynamically stable without any chest pain. Will treat medically with aspirin, beta-melba, statin. Will also fully anticoagulated with IV Lovenox. Cardiology has seen, and agrees with current management. Decrease Lovenox to prophylactic dose now. (4) Hypertensive emergency Acute I16.1 - HYPERTENSIVE EMERGENCY Comment/Plan: With severe hypertension with systolic above 210 at the time of admission, as well as intermittent confusion. His home medications has been resumed, was also on nitro drip which has been weaned off. Note that his home losartan has been held due to his acute kidney injury. (5) Acute respiratory failure with hypoxia Acute J96.01 - ACUTE RESPIRATORY FAILURE WITH HYPOXIA Comment/Plan: Likely due to combination of fluid overload and severe hypertension. Treating as above. 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 Will discontinue metformin due to his acute kidney injury; use sliding scale q.a.c. and HS insulin as needed. Also checked hemoglobin A1c=6.4 and urine [id number]=420.2. (7) Acute kidney injury Chronic N17.9 - ACUTE KIDNEY FAILURE, UNSPECIFIED Comment/Plan: Patient's baseline creatinine is around 1.7, today his creatinine is elevated well above 2. [place] to be most likely related to hypertension and poor kidney perfusion due to fluid overload. Renal function was slowly improving, but is now starting to rise again, so may need to discontinue/decrease Lasix if this continues to happen.
[2016-08-07] MEDS: FUROSEMIDE 40 MG TAB PO SCH (16:26)
[2016-08-07] MEDS: ENOXAPARIN 30 MG/0.3 ML PFS SQ SCH (16:27)
[2016-08-07] MEDS: ATORVASTATIN 40 MG TAB PO SCH (19:57)
[2016-08-08 04:11] LABS: MPV 9.4 fL (7.4-10.4)
[2016-08-08] MEDS: PANTOPRAZOLE 40 MG TAB PO SCH (04:33)
[2016-08-08] MEDS: hydrALAZINE 25 MG TAB PO SCH ×2 (04:33→13:07)
[2016-08-08 04:47] LABS: BLOOD UREA NITROGEN 47 MG/DL (9-20); CALCIUM 8.3 MG/DL (8.4-10.2); CALCULATED OSMOLALITY 277 MOs/Kg (270-290); CHLORIDE 91 mEq/L (98-107); GLUCOSE 116 MG/DL (70-99); SODIUM LEVEL 137 mEq/L (137-146)
[2016-08-08] MEDS: REGULAR INSULIN 100 UNITS/ML - 3 ML VIAL SQ SCH ×2 (05:27→11:35)
[2016-08-08] MEDS: ISOSORBIDE MONONITRATE 60 MG TAB PO SCH (08:03)
[2016-08-08] MEDS: CARVEDILOL 3.125 MG TAB PO SCH (08:03)
[2016-08-08] MEDS: POTASSIUM CHLORIDE 20 MEQ TAB PO SCH (08:03)
[2016-08-08] MEDS: Aspirin (Orange Enteric Coated) 325 mg tab PO SCH (08:04)
[2016-08-08] MEDS: FUROSEMIDE 40 MG TAB PO SCH (08:04)
--- NOTE | 2016-08-08 09:10 | PCM.DCS92 ---
- Final/Secondary Discharge Diagnosis (1) Acute exacerbation of CHF (congestive heart failure) Chronic I50.9 - HEART FAILURE, UNSPECIFIED Present on Admission: Yes diastolic I50.33 - Acute on chronic diastolic (congestive) heart failure Comment: With significant hypoxia, systolic and diastolic hypertension. Will resume the patient's usual cardiac medications; he was admitted to the hospital using evidence based care acute CHF order set. Diabetic and low-sodium diet when eating. Patient is responding well to aggressive IV diuresis, his renal function is holding well and he has diuresed another 1.1 L in the last 24 hours. Continue potassium supplementation, and change Lasix to 40 mg PO q.12 hours. Patient weighed 89 Kg on admission, has dropped down to 85 kg now. Was 84.5 kg at last discharge. (close to dry weight.) (2) Venous stasis ulcers of both lower extremities Acute I83.019 - VARICOSE VEINS OF RIGHT LOWER EXTREMITY W ULCER OF UNSP SITE; I83.029 - VARICOSE VEINS OF LEFT LOWER EXTREMITY W ULCER OF UNSP SITE Present on Admission: Yes Comment: Patient forgets to elevate his legs, has persistent swelling in both legs and numerous partially healed ulcers of both legs. Dementia is contributing to his illness. He seems to know what he is saying, but actually does not always reconize people or surroundings. Lives with daughter, gets home health nursing services. Noncompliance is large part of return visits due to forgetfulness and family relying on patient to remember to do things. (3) Non-STEMI (non-ST elevated myocardial infarction) Acute I21.4 - NON-ST ELEVATION (NSTEMI) MYOCARDIAL INFARCTION Present on Admission: Yes Comment: Patient with elevated troponin, but hemodynamically stable without any chest pain. Will treat medically with aspirin, beta-melba, statin. Also fully anticoagulated with IV Lovenox. Cardiology has seen, and agrees with current management. Decrease Lovenox to prophylactic dose now. (4) Hypertensive emergency Acute I16.1 - HYPERTENSIVE EMERGENCY Present on Admission: Yes Comment: With severe hypertension with systolic above 210 at the time of admission, as well as intermittent confusion. His home medications has been resumed, was also on nitro drip which has been weaned off. Note that his home losartan has been held due to his acute kidney injury. (5) Acute respiratory failure with hypoxia Acute J96.01 - ACUTE RESPIRATORY FAILURE WITH HYPOXIA Present on Admission: Yes Comment: Likely due to combination of fluid overload and severe hypertension. Treating as above. 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 Will discontinue metformin due to his acute kidney injury; use sliding scale q.a.c. and HS insulin as needed. Also checked hemoglobin A1c=6.4 and urine [id number]=235.2. (7) Acute kidney injury Chronic N17.9 - ACUTE KIDNEY FAILURE, UNSPECIFIED Present on Admission: Yes Comment: Patient's baseline creatinine is around 1.7, today his creatinine is elevated well above 2. [place] to be most likely related to hypertension and poor kidney perfusion due to fluid overload. Renal function was slowly improving, but is now starting to rise again, so may need to discontinue/decrease Lasix if this continues to happen. (8) Cellulitis Acute L03.90 - CELLULITIS, UNSPECIFIED extremity lower extremity unspecified laterality L03.119 - Cellulitis of unspecified part of limb Comment: Patient has a history of lower extremity ulceration with infection. Currently there is no luis carlos evidence of infection, though there is some warmth and erythema surrounding his chronic ulcerations and leg wounds. As such, has completed 7 days of IV linezolid, to cover for MRSA in this diabetic patient with prior history of cellulitis who also has acute kidney injury currently. Discharge Disposition: Discharge w/ Home Health Discharge Condition: Improved Cognitive Discharge Status: Cognitive deficits prevent decision making for safety., Cognitive Deficits Impact judgement, impair ability to safely navigate Fuctional Discharge Status: Walker Assistance, Fall Risk, Deconditioning, Ambulatory Dysfunction, Unable to leave home without assistance Physician Follow up/Referrals: Ivan Parson MD [Primary Care Provider] - 1-2 weeks New Prescriptions: Furosemide [Lasix] 40 mg PO 0800,1600 #60 tablet Insulin, Regular [Humulin R] 2 units SQ ACHS #1 vial Losartan Potassium [Cozaar] 25 mg PO DAILY #30 tablet Nitroglycerin Sublingual Tab [NTG (NitroStat Sublingual Tab)] 0.4 mg SL PRN PRN #30 tablet PRN Reason: Chest Pain Or Discomfort Sitagliptin Phosphate [Januvia] 50 mg PO DAILY #30 tab Discharge Home Medication List Aspirin (OrangeEnteric Coated) [Ecotrin] 325 mg PO DAILY 02/16/14 [History Confirmed 08/02/16 Last Taken 01/02/16 08:43] Potassium Chloride 20 meq PO DAILY 02/16/14 [History Confirmed 08/02/16 Last Taken 01/02/16 08:43] Omeprazole [Prilosec] 20 mg PO DAILY 11/29/14 [History Confirmed 08/02/16 Last Taken 12/30/15] Albuterol Sulfate [Proair Hfa] 2 puff INH QID PRN 03/07/15 [History Confirmed Last Taken 12/30/15] Atorvastatin Calcium [Lipitor] 40 mg PO HS 03/07/15 [History Confirmed 08/02/16 Last Taken 01/01/16 22:30] Carvedilol [Coreg] 3.125 mg PO BID 03/07/15 [History Confirmed 08/02/16 Last Taken 01/02/16 08:43] Isosorbide Mononitrate [Isosorbide Mononitrate ER] 60 mg PO DAILY 03/07/15 [ History Confirmed 08/02/16 Last Taken 01/02/16 05:22] CloNIDine (Antihypertensive) [Catapres] 0.3 mg PO BID 07/11/15 [History Confirmed 08/02/16 Last Taken 01/02/16 05:21] HydrALAZINE (Cardiovascular) [Apresoline] 25 mg PO TID 07/11/15 [History Confirmed 08/02/16 Last Taken 01/02/16 05:22] Albuterol Sulfate [Ventolin] 3 ml NEB Q2H PRN #100 nebu 01/02/16 [Rx Confirmed 08/02/16 Last Taken Unknown] Nebulizer [Erapid Nebulizer] 1 each MC QID #1 each 01/02/16 [Rx Confirmed Last Taken Unknown] Oxycodone HCl [Oxycodone Immediate Release] 10 mg PO QID 08/02/16 [History Confirmed 08/02/16 Last Taken Unknown] Acetaminophen Tablet [TYLENOL Tablet] 650 mg PO Q6H PRN #100 tablet 08/08/16 [ Rx Last Taken Unknown] Furosemide [Lasix] 40 mg PO 0800,1600 #60 tablet 08/08/16 [Rx Last Taken Unknown ] Insulin, Regular [Humulin R] 2 units SQ ACHS #1 vial 08/08/16 [Rx Last Taken Unknown] Losartan Potassium [Cozaar] 25 mg PO DAILY #30 tablet 08/08/16 [Rx Last Taken Unknown] Nitroglycerin Sublingual Tab [NTG (NitroStat Sublingual Tab)] 0.4 mg SL PRN PRN #30 tablet 08/08/16 [Rx Last Taken Unknown] Sitagliptin Phosphate [Januvia] 50 mg PO DAILY #30 tab 08/08/16 [Rx Last Taken Unknown] Elevate legs for 1 hour in morning and 2 hours every afternoon. Change dressings on legs daily. O2 Device: Nasal Cannula Oxygen Flow Rate: 2 Oxygen to be used after Discharge: Continuous Diet at Discharge: Cardiac, Low Salt, Diabetic, 1800 Calorie Activity: As Tolerated, No Driving Call Office For: Worsening Symptoms, Fever over 101 F Discontinue use of:: Alcohol, All Types of Tobacco - DC Summary Notes Home Health Need / Senior Living Services:: Due to the presence of Diabetic Changes and/or risk of deterioration a skilled Assessment and observation of endocrine status is required for this patient. This assessment to include but not limited to: teaching, training of disease process and symptom management (diet, infection control), safety, S/S of hyper/ hypoglycemia, medication, medication management, and recognizing changes/ decline in status. Blood sugar monitoring signs and symptoms to report to physician paper mill supervisor. Due to the presence of Cardiac Changes and/or risk of deterioration a skilled Assessment and observation of cardiovascular status is required for this patient. This assessment could include but not limited to teaching, training of disease process and symptom management (diet, infection control, safety) and recognizing changes/decline in status. If appropriate to include education on oxygen use - safety, storage, reordering and need for a fire plan. Pulse Oximetry PRN for S/S respiratory distress. Due to the presence of and/or risk of Wound deterioration a skilled Assessment and observation of skin/wound status and measurement is required for this patient. Short-term nursing care needed for wound care monitor for signs of infection and education when care for family to perform dressing changes. This assessment could include but not limited to teaching, training of disease process and symptom management, pain and symptom management, perform/instruct on wound care until healed or becomes chronic status. Hospital Course Note:: Discharge summary on patient named KENNETH CHRISTENSEN admitted to [facility] on 08/01/16 by Venkatesh Bray MD. Date of discharge is [08/08/16]. This is a 75-year-old male with a history of hypertension, CHF who is being admitted to the hospital with hypertensive encephalopathy, acute CHF exacerbation and concern for lower extremity cellulitis. Patient tells me that he has chronic shortness of breath, seems to be slightly confused tells me that his shortness of breath is all the time, but it seems to come and go. Says that he has had some chest tightness in the last few days, but the thing that really brought him to the hospital is severe pain in his left leg. His daughters at the bedside, with whom he has been staying for the last few days, she is able to provide some more history. She says that he is becoming progressively more short of breath over the last week or so, has been coughing but it is nonproductive. The reason she really brought to the hospital today is that he is having severe left leg pain that keeps coming in spasms. They have been trying to elevate the left lower extremity, but whenever they go to let him on his back, he started to have coughing fits and has severe shortness of breath. They deny any fevers or chills, the patient says that most of his pain is in the left leg, but at times he has had some chest tightness and pain. No nausea or vomiting, no blood in the stools or any vomitus. No therapies tried prior to arrival. They are concerned about infection in the lower extremities, as he has been weeping some clear fluid, with the patient's daughter also tells me that he has been draining some thick appearing green material from his leg, the left lateral side. He was admitted for control of his congestive heart failure and cellulitis, along with the infection in his legs. His BP was markedly elevated at the time of admission and he required a NTG infusion. This has since been weaned off and his blood pressure has improved. With significant hypoxia, systolic and diastolic hypertension. He did rule in for an acute myocardial infarction. We resumed the patient's usual cardiac medications; he was admitted to the hospital using evidence based care acute CHF order set. He is on a diabetic and low-sodium diet, which he is encouraged to continue at home. Patient is responding well to aggressive IV diuresis, his renal function is holding well and he has diuresed another 1.1 L in the last 24 hours. Continue potassium supplementation, and change Lasix to 40 mg PO q.12 hours. Patient weighed 89 Kg on admission, has dropped down to 85 kg now. Was 84.5 kg at last discharge. (his dry weight.) Although he still has some peripheral edema, this may be his best weight, since his renal function will be compromised with further diuresis. We have adjusted some of his medications because of his renal insufficiency. The dose of his Losartan was decreased, and his metformin was discontinued. He was started on Januvia, with sliding scale regular insulin for control of his diabetes. His creatinine at discharge is 2.2. His troponins were elevated on admission, although he denied chest pain he was hypoxic from his congestive heart failure, and he was felt to have suffered a mild NSTEMI from demand ischemia. He has been treated as such and is recovering well. He was treated with seven days of IV linezolid for the infection in his legs. This has been completed and he will not be on any antibiotics at discharge, just topical dressings. We will arrange for home health follow-up and send a report to his primary care physician, Dr. Ivan Parson. Total Time: 45 min Code: 96527 (>30min.) - Physical Exam Vital Signs: Last Vital Signs Temp 98.5 F 08/08/16 07:30 Pulse 75 08/08/16 07:30 Resp 20 08/08/16 07:30 BP 151/76 08/08/16 07:30 Pulse Ox 95 08/08/16 07:30 Oxygen Pulse Oxygen Saturation 95 O2 Device Nasal Cannula Oxygen Flow Rate 2 Fraction of Inspired Oxygen ( 40 FIO2) Constitutional: No apparent distress, Alert. negative: Cachectic, Confused Oriented to: Time, Person, Place - HEENT Head: Normal Eye: Normal Oropharynx: Normal Tympanic Membrane: Normal ENT EAC: Normal Nose: No Symptoms Reported - Respiratory/Cardiovascular Respiratory: Normal - CTA, Diminished (Slightly improved air movement this morning.) Cardiovascular: Normal - GI Auscultation: Normal Palpation: Normal (soft, non distended and nontender) Tenderness: Non tender Rectal Exam: Deferred - Musculoskeletal Back: Normal Extremities: Edema (chronic venous stasis of LE's with old ulcers scabbed over, however edema has improved), Pedal Edema - Integumentary Skin: Warm, Dry Lymphatics: Normal - Neurologic Memory Impaired: Short-term (IMPAIRED) Motor Function: Normal Cranial Nerve: Normal Cerebellar: Normal Mood Description: Anxious Thought: Rambling Conversation Perception: Normal
[2016-08-08 11:11] VITALS: BP 105/65; TEMP 98.2
[2016-08-08 13:02] VITALS: PULSE 69
== END 2016-08-08 16:24 | disposition home health service (06) | DRG 280 ==
LOC: ED 14:31 → PCU 15:57
PROVIDERS: ADMIT Internal Medicine; ATTEND Family Medicine
PROC: 5A09357 Assistance with Respiratory Ventilation, Less than 24 Consecutive Hours, Continuous Positive Airway Pressure (ICD-10-PCS; principal; 2016-08-01)
PROC: 039B3ZZ Drainage of Right Radial Artery, Percutaneous Approach (ICD-10-PCS; 2016-08-01)
DX: I50.33 Acute on chronic diastolic (congestive) heart failure (principal); I21.4 Non-ST elevation (NSTEMI) myocardial infarction; J96.01 Acute respiratory failure with hypoxia; I16.1 Hypertensive emergency; N17.9 Acute kidney failure, unspecified; I67.4 Hypertensive encephalopathy; L97.219 Non-pressure chronic ulcer of right calf with unspecified severity; L03.115 Cellulitis of right lower limb; I83.019 Varicose veins of right lower extremity with ulcer of unspecified site; I83.029 Varicose veins of left lower extremity with ulcer of unspecified site; E11.42 Type 2 diabetes mellitus with diabetic polyneuropathy; I25.2 Old myocardial infarction; E78.00 Pure hypercholesterolemia, unspecified; J44.9 Chronic obstructive pulmonary disease, unspecified; K21.9 Gastro-esophageal reflux disease without esophagitis; M19.90 Unspecified osteoarthritis, unspecified site; M06.9 Rheumatoid arthritis, unspecified; F32.9 Major depressive disorder, single episode, unspecified; Z79.899 Other long term (current) drug therapy; Z79.82 Long term (current) use of aspirin
CPT/HCPCS: 36415; 36600; 71010; 80048; 80053; 82043; 82803; 82962; 83036; 83735; 83880; 84484; 85025; 85027; 85610; 85730; 87641; 93005; 93306; 94660; 94664; 96372; 96374; 97162; 99284; J1650; J1940; J2020; J2060; J2270; J2405; J3475; J3490